=== PATIENT | female | born 1990 | race Caucasian/White ===

== ENCOUNTER 2024-10-22 17:05 | Emergency (ER) | payer MEDICAID, SELFPAY ==
[2024-10-22 17:14] VITALS: PULSE 84; RESP 16; TEMP 36.7; O2SAT 97
[2024-10-22 17:16] VITALS: BP 135/73; PULSE 83; RESP 16; TEMP 36.7; O2SAT 98
[2024-10-22 19:29] LABS: Basophils % 0.2 %; Eosinophils # 0.1 10^3/uL (0.0-0.8); Eosinophils % 0.8 %; Hematocrit 42.4 % (36-47); Lymphocytes # 2.5 10^3/uL (0.8-4.8); Lymphocytes % 27.1 %; Mean Corpuscular HGB Conc 33.3 g/dL (30-55); Mean Corpuscular Hemoglobin 31.8 pg (27-33); Mean Corpuscular Volume 95.5 fl (85-98); Mean Platelet Volume 9.6 fL (7.4-10.4); Monocytes # 0.6 10^3/uL (0.2-0.9); Monocytes % 6.6 %; Neutrophils # 6.01 10^3/uL (1.8-7.7); Neutrophils % 65.1 %; Nucleated Red Blood Cells % 0 %; Platelet Count 320 10^3/cmm (157-399); Red Blood Count 4.44 10^6/uL (3.85-5.65); Red Cell Distribution Width 11.9 % (12.1-15.1); White Blood Count 9.23 10^3/uL (3.29-11.43)
--- NOTE | 2024-10-22 19:37 | CTR_ITS ---
PROCEDURE INFORMATION: Exam: CT Abdomen And Pelvis With Contrast Exam date and time: 10/22/2024 8:16 PM Age: 34 years old Clinical indication: Abdominal pain; Generalized; Prior surgery; Surgery date: 6+ months; Surgery type: Tubes tied, low back; Additional info: Rlq abdominal pain TECHNIQUE: Imaging protocol: Computed tomography of the abdomen and pelvis with contrast. Radiation optimization: All CT scans at this facility use at least one of these dose optimization techniques: automated exposure control; mA and/or kV adjustment per patient size (includes targeted exams where dose is matched to clinical indication); or iterative reconstruction. Contrast material: OMNIPAQUE 350; Contrast volume: 100 ml; Contrast route: INTRAVENOUS (IV); COMPARISON: No relevant prior studies available. RADIATION DOSE METRICS: Total DLP (mGy-cm): 859.73 FINDINGS: Tubes, catheters and devices: Partially included CASHIER AND WAITER/WAITRESS shunt with no catheter interruption. Liver: Normal. No mass. Gallbladder and biliary ducts: Normal. No calcified stones. No ductal dilation. Pancreas: Normal. No ductal dilation. Spleen: Normal. No splenomegaly. Adrenal glands: Normal. No mass. Kidneys and ureters: Hypodense lesion in the interpolar region of the left kidney measuring 7 mm, too small to characterize. There is no evidence of hydronephrosis. Stomach and bowel: Unremarkable. No obstruction. No mucosal thickening. Appendix: No evidence of appendicitis. Intraperitoneal space: There is a small amount of free intraperitoneal fluid present. Vasculature: There are numerous benign phleboliths in the pelvis. Lymph nodes: Unremarkable. No enlarged lymph nodes. Urinary bladder: Unremarkable as visualized. Reproductive: Unremarkable as visualized. Bones/joints: There are mild degenerative changes of the hip joints. Post posterior L5-S1 instrumentation with L5-S1 interbody disc spacer. No hardware complications. Mild retrolisthesis of L4 over L5. Soft tissues: Unremarkable. CT/CT abdomen pelvis w con* [id number] IMPRESSION: No acute intra-abdominal process. COMMENTS: Consistent with the [employer]'s Incidental Findings Committee white paper (J Am Irena Radiol 2018): Any incidental renal lesion less than 1 cm or classified as too small to characterize, or any incidental cystic renal lesion characterized as simple-appearing, is likely benign. No follow-up imaging is recommended for these lesions per consensus recommendations based on imaging criteria.
[2024-10-22 19:46] LABS: Alanine Aminotransferase 16 U/L (0-33); Albumin Level 4.4 g/dL (3.5-5.2); Alkaline Phosphatase 65 U/L (35-105); Aspartate Amino Transferase 17 U/L (0-32); Blood Urea Nitrogen 8 mg/dL (6-20); C Reactive Protein 5.2 mg/L (0.0-4.9); Calcium 9.1 mg/dL (8.5-10.5); Carbon Dioxide 25 mmol/L (22-29); Chloride 99 mmol/L (98-107); Creatinine Clr Calc Pharmacy 132.8903; Globulin 3.1 g/dL (1.3-4.6); Glomerular Filtration Rate 95.8 mL/min (90-130); Glucose 95 mg/dL (65-115); Lipase 30 U/L (13-60); Osmolality Calculated 282 mOsm/kg (285-295); Sodium 137 mmol/L (136-145); Total Bilirubin 0.4 mg/dL (0.15-1.2); Total Protein 7.5 g/dL (6.6-8.7)
[2024-10-22 19:47] LABS: Lactic Sepsis W/Reflex 1.1 mmol/L (0.5-2.2)
[2024-10-22 19:50] LABS: Anion Gap 17.1 (5-19); Potassium 4.1 mmol/L (3.5-5.1)
[2024-10-22] MEDS: iohexol 350 mg/mL 500 mL Btl (per mL) IV (20:17)
--- NOTE | 2024-10-22 20:20 | ED_ITS ---
Documented by User: Noelle Cordero MD 10/22/24 20:22 HPI - Abdominal Pain 2 General: Chief Complaint: Abdominal Pain Stated Complaint: right lower abdominal pain Time Seen by Provider: 10/22/24 19:35 History of Present Illness: 34-year-old female who presents emergenc y room with right lower quadrant abdominal pain. She is been having pain for couple of weeks now. She had nausea and decreased appetite with weight loss she says. She went to see her primary who told her to come to the emergency room for imaging. No surgical history other than she did have her tubes tied. No fevers. Vital signs are normal on presentation. She has some tenderness to palpation in the right lower quadrant. Related Data Home Medications ?Medication ?Instructions ?Recorded ?Confirmed acetaminophen 325 mg tablet 325 mg PO QID PRN 10/22/24 10/22/24 (Tylenol) lamotrigine 200 mg tablet 200 mg PO BID 10/22/2410/22 omeprazole 20 mg capsule,delayed 20 mg PO DAILY 10/22/24 release spironolactone 50 mg tablet 75 mg PO DAILY 10/22/24 Allergies Allergy/AdvReac Type Severity Reaction Status Date / Time tetracycline Allergy Severe Unknown Verified 10/22/24 15:07 azithromycin Allergy Intermediate Unknown Verified 10/22/24 15:07 latex Allergy Intermediate ALGY-Bliste Verified 10/22/24 15:07 r tramadol Allergy Intermediate Unknown Verified 10/22/24 15:07 vancomycin Allergy Intermediate ADR/ALGY-Fl Verified 10/22/24 15:07 ushing Review of Systems 2 Narrative: Constitutional symptoms: Negative except as documented in HPI. Skin symptoms: Negative except as documented in HPI. Eye symptoms: Negative except as documented in HPI. ENMT symptoms: Negative except as documented in HPI. Respiratory symptoms: Negative except as documented in HPI. Cardiovascular symptoms: Negative except as documented in HPI. Gastrointestinal symptoms: Negative except as documented in HPI. Genitourinary symptoms: Negative except as documented in HPI. Musculoskeletal symptoms: Negative except as documented in HPI. Neurologic symptoms: Negative except as documented in HPI. Psychiatric symptoms: Negative except as documented in HPI. Endocrine symptoms: Negative except as documented in HPI. PFSH ED 2 PFSH: Social History Smoking and tobacco/nicotine status: former use of tobacco/nicotine Physical Exam 2 Narrative: EXAM NARRATIVE: General: Alert, no acute distress. Skin: Warm, dry. Head: Normocephalic, atraumatic. Neck: Supple, trachea midline. Eye: Extraocular movements are intact. Ears, nose, mouth and throat: mucosa moist. Cardiovascular: Regular, Normal peripheral perfusion. Respiratory: Lungs are clear to auscultation, respirations are non-labored, breath sounds are equal, Symmetrical chest wall expansion. Gastrointestinal: Soft, tenderness to palpation in the right lower quadrant, Non distended Musculoskeletal: Normal ROM, no deformity. Neurological: Alert and oriented, No focal neurological deficit observed. Psychiatric: Cooperative, appropriate mood & affect. Course 2 Vital Signs: Vital signs: Vital Signs Temperature 98.0 F 10/22/24 17:16 Pulse Rate 71 10/22/24 21:28 Respiratory Rate 18 10/22/24 21:28 Blood Pressure 117/60 10/22/24 21:28 Pulse Oximetry 98 10/22/24 21:28 Oxygen Delivery Me thod Room Air 10/22/24 21:28 MDM - Abdominal Pain Medical Decision Making Medical decision making: Differential diagnosis for this patient with right lower quadrant abdominal pain including but not limited to and based on the above HPI, review of systems and physical exam: Ureterolithiasis. Urinary tract infection. Appendicitis. colitis. small bowel obstruction. Crohn's flare. Pancreatitis. Cholelithiasis or cholecystitis. Hepatitis. Diverticulitis. Constipation. ovarian cyst. ovarian torsion Workup: Orders were placed to evaluate differential diagnosis based on the above differential, HPI and exam: Lab Review: Laboratory results were reviewed and interpreted by myself the emergency room physician. I reviewed the patient's medical record Reexamination: Lab Data 10/22/24 19:20 10/22/24 19:20 Labs/Radiology: Radiology Impressions Abdomen/Pelvis CT 10/22/24 19:37 IMPRESSION: No acute intra-abdominal process. COMMENTS: Consistent with the [employer]'s Incidental Findings Committee white paper (J Am Irena Radiol 2018): Any incidental renal lesion less than 1 cm or classified as too small to characterize, or any incidental cystic renal lesion characterized as simple-appearing, is likely benign. No follow-up imaging is recommended for these lesions per consensus recommendations based on imaging criteria. Laboratory Results WBC 9.23 10^3/uL (3.29-11.43) 10/22/24 19:20 RBC 4.44 10^6/uL (3.85-5.65) 10/22/24 19:20 Hgb 14.10 g/dL (11.27-16.99) 10/22/24 19:20 Hct 42.4 % (36-47) 10/22/24 19:20 MCV 95.5 fl (85-98) 10/22/24 19:20 MCH 31.8 pg (27-33) 10/22/24 19:20 MCHC 33.3 g/dL (30-55) 10/22/24 19:20 RDW 11.9 % (12.1-15.1) L 10/22/24 19:20 Plt Count 320 10^3/cmm (157-399) 10/22/24 19:20 MPV 9.6 fL (7.4-10.4) 10/22/24 19:20 Neut % (Auto) 65.1 % 10/22/24 19:20 Lymph % (Auto) 27.1 % 10/22/24 19:20 [place] % (Auto) 6.6 % 10/22/24 19:20 Eos % (Auto) 0.8 % 10/22/24 19:20 Baso % (Auto) 0.2 % 10/22/24 19:20 Neut # (Auto) 6.01 10^3/uL (1.8-7.7) 10/22/24 19:20 Lymph # (Auto) 2.5 10^3/uL (0.8-4.8) 10/22/24 19:20 [place] # (Auto) 0.6 10^3/uL (0.2-0.9) 10/22/24 19:20 Eos # (Auto) 0.1 10^3/uL (0.0-0.8) 10/22/24 19:20 Baso # (Auto) 0.0 10^3/uL (0.0-0.1) 10/22/24 19:20 Nucleated RBC % (auto) 0 % 10/22/24 19:20 Nucleated RBCs # 0.0 /100WBC 10/22/24 19:20 Sodium 137 mmol/L (136-145) 10/22/24 19:20 Potassium 4.1 mmol/L (3.5-5.1) 10/22/24 19:20 Chloride 99 mmol/L (98-107) 10/22/24 19:20 Carbon Dioxide 25 mmol/L (22-29) 10/22/24 19:20 Anion Gap 17.1 (5-19) 10/22/24 19:20 BUN 8 mg/dL (6-20) 10/22/24 19:20 Creatinine 0.7 mg/dL (0.5-0.9) 10/22/24 19:20 GFR Calculation 95.8 mL/min (90-130) 10/22/24 19:20 Glucose 95 mg/dL (65-115) 10/22/24 19:20 Calculated Osmolality 282 mOsm/kg (285-295) L 10/22/24 19:20 Lactic Acid 1.1 mmol/L (0.5-2.2) 10/22/24 19:20 Calcium 9.1 mg/dL (8.5-10.5) 10/22/24 19:20 Total Bilirubin 0.4 mg/dL (0.15-1.2) 10/22/24 19:20 AST 17 U/L (0-32) 10/22/24 19:20 ALT 16 U/L (0-33) 10/22/24 19:20 Alkaline Phosphatase 65 U/L (35-105) 10/22/24 19:20 C-Reactive Protein 5.2 mg/L (0.0-4.9) H 10/22/24 19:20 Total Protein 7.5 g/dL (6.6-8.7) 10/22/24 19:20 Albumin 4.4 g/dL (3.5-5.2) 10/22/24 19:20 Globulin 3.1 g/dL (1.3-4.6) 10/22/24 19:20 Lipase 30 U/L (13-60) 10/22/24 19:20 HCG, Qual Negative (Negative) 10/22/24 19:20 Discharge Plan Discharge Patient Disposition: Home Clinical Impression: Gastroenteritis Condition: Stable Prescriptions: No Action acetaminophen [Tylenol] 325 mg tablet 325 mg PO QID PRN lamotrigine 200 mg tablet 200 mg PO BID omeprazole 20 mg capsule,delayed release(DR/EC) 20 mg PO DAILY spironolactone 50 mg tablet 75 mg PO DAILY Discharge Orders: Discharge ED (Routine); Ordered 10/22/24 Ordered By: Diomedes Armendariz Discharge Diet: Advance as tolerated Discharge Activity: Increase activity as tolerated Patient Instructions: Opioid Safety, Pain Management Activity Restrictions/Additional Instructions: Please follow-up with your primary care physician for any persistent symptoms. Return to the emergency department for any new or worsening symptoms. Print Language: Persian Coding Level of Care Code ED Residential Recycle Driver for [employer] Fwd Documented by User: Diomedes Armendariz DO 10/22/24 21:33 HPI - Abdominal Pain 2 General: Chief Complaint: Abdominal Pain Stated Complaint: right lower abdominal pain Time Seen by Provider: 10/22/24 19:35 Related Data Home Medications ?Medication ?Instructions ?Recorded ?Confirmed acetaminophen 325 mg tablet 325 mg PO QID PRN 10/22/24 10/22/24 (Tylenol) lamotrigine 200 mg tablet 200 mg PO BID 10/22/2410/22 omeprazole 20 mg capsule,delayed 20 mg PO DAILY 10/22/24 release spironolactone 50 mg tablet 75 mg PO DAILY 10/22/24 Allergies Allergy/AdvReac Type Severity Reaction Status Date / Time tetracycline Allergy Severe Unknown Verified 10/22/24 15:07 azithromycin Allergy Intermediate Unknown Verified 10/22/24 15:07 latex Allergy Intermediate ALGY-Bliste Verified 10/22/24 15:07 r tramadol Allergy Intermediate Unknown Verified 10/22/24 15:07 vancomycin Allergy Intermediate ADR/ALGY-Fl Verified 10/22/24 15:07 ushing [facility] ED 2 PFSH: Social History Smoking and tobacco/nicotine status: former use of tobacco/nicotine Course 2 Vital Signs: Vital signs: Vital Signs Temperature 98.0 F 10/22/24 17:16 Pulse Rate 71 10/22/24 21:28 Respiratory Rate 18 10/22/24 21:28 Blood Pressure 117/60 10/22/24 21:28 Pulse Oximetry 98 10/22/24 21:28 Oxygen Delivery Me thod Room Air 10/22/24 21:28 MDM - Abdominal Pain Medical Decision Making Medical decision making: Differential diagnosis for this patient with right lower quadrant abdominal pain including but not limited to and based on the above HPI, review of systems and physical exam: Ureterolithiasis. Urinary tract infection. Appendicitis. colitis. small bowel obstruction. Crohn's flare. Pancreatitis. Cholelithiasis or cholecystitis. Hepatitis. Diverticulitis. Constipation. ovarian cyst. ovarian torsion Workup: Orders were placed to evaluate differential diagnosis based on the above differential, HPI and exam: Lab Review: Laboratory results were reviewed and interpreted by myself the emergency room physician. I reviewed the patient's medical record 2131: Care assumed from Dr. Cordero. Patient awaiting CT results. On review of the CT results there is no acute intra-abdominal process. Vital signs were stable. Patient was feeling improved with IV fluids. Encouraged her to follow-up with her primary care physician. Return precautions were discussed and the patient was discharged home in good condition. Lab Data 10/22/24 19:20 10/22/24 19:20 Labs/Radiology: Radiology Impressions Abdomen/Pelvis CT 10/22/24 19:37 IMPRESSION: No acute intra-abdominal process. COMMENTS: Consistent with the [employer]'s Incidental Findings Committee white paper (J Am Irena Radiol 2018): Any incidental renal lesion less than 1 cm or classified as too small to characterize, or any incidental cystic renal lesion characterized as simple-appearing, is likely benign. No follow-up imaging is recommended for these lesions per consensus recommendations based on imaging criteria. Laboratory Results WBC 9.23 10^3/uL (3.29-11.43) 10/22/24 19:20 RBC 4.44 10^6/uL (3.85-5.65) 10/22/24 19:20 Hgb 14.10 g/dL (11.27-16.99) 10/22/24 19:20 Hct 42.4 % (36-47) 10/22/24 19:20 MCV 95.5 fl (85-98) 10/22/24 19:20 MCH 31.8 pg (27-33) 10/22/24 19:20 MCHC 33.3 g/dL (30-55) 10/22/24 19:20 RDW 11.9 % (12.1-15.1) L 10/22/24 19:20 Plt Count 320 10^3/cmm (157-399) 10/22/24 19:20 MPV 9.6 fL (7.4-10.4) 10/22/24 19:20 Neut % (Auto) 65.1 % 10/22/24 19:20 Lymph % (Auto) 27.1 % 10/22/24 19:20 [place] % (Auto) 6.6 % 10/22/24 19:20 Eos % (Auto) 0.8 % 10/22/24 19:20 Baso % (Auto) 0.2 % 10/22/24 19:20 Neut # (Auto) 6.01 10^3/uL (1.8-7.7) 10/22/24 19:20 Lymph # (Auto) 2.5 10^3/uL (0.8-4.8) 10/22/24 19:20 [place] # (Auto) 0.6 10^3/uL (0.2-0.9) 10/22/24 19:20 Eos # (Auto) 0.1 10^3/uL (0.0-0.8) 10/22/24 19:20 Baso # (Auto) 0.0 10^3/uL (0.0-0.1) 10/22/24 19:20 Nucleated RBC % (auto) 0 % 10/22/24 19:20 Nucleated RBCs # 0.0 /100WBC 10/22/24 19:20 Sodium 137 mmol/L (136-145) 10/22/24 19:20 Potassium 4.1 mmol/L (3.5-5.1) 10/22/24 19:20 Chloride 99 mmol/L (98-107) 10/22/24 19:20 Carbon Dioxide 25 mmol/L (22-29) 10/22/24 19:20 Anion Gap 17.1 (5-19) 10/22/24 19:20 BUN 8 mg/dL (6-20) 10/22/24 19:20 Creatinine 0.7 mg/dL (0.5-0.9) 10/22/24 19:20 GFR Calculation 95.8 mL/min (90-130) 10/22/24 19:20 Glucose 95 mg/dL (65-115) 10/22/24 19:20 Calculated Osmolality 282 mOsm/kg (285-295) L 10/22/24 19:20 Lactic Acid 1.1 mmol/L (0.5-2.2) 10/22/24 19:20 Calcium 9.1 mg/dL (8.5-10.5) 10/22/24 19:20 Total Bilirubin 0.4 mg/dL (0.15-1.2) 10/22/24 19:20 AST 17 U/L (0-32) 10/22/24 19:20 ALT 16 U/L (0-33) 10/22/24 19:20 Alkaline Phosphatase 65 U/L (35-105) 10/22/24 19:20 C-Reactive Protein 5.2 mg/L (0.0-4.9) H 10/22/24 19:20 Total Protein 7.5 g/dL (6.6-8.7) 10/22/24 19:20 Albumin 4.4 g/dL (3.5-5.2) 10/22/24 19:20 Globulin 3.1 g/dL (1.3-4.6) 10/22/24 19:20 Lipase 30 U/L (13-60) 10/22/24 19:20 HCG, Qual Negative (Negative) 10/22/24 19:20 All radiology interpretation(s) finalized by discharge Discharge Plan Discharge Patient Disposition: Home Clinical Impression: Gastroenteritis Condition: Stable Prescriptions: No Action acetaminophen [Tylenol] 325 mg tablet 325 mg PO QID PRN lamotrigine 200 mg tablet 200 mg PO BID omeprazole 20 mg capsule,delayed release(DR/EC) 20 mg PO DAILY spironolactone 50 mg tablet 75 mg PO DAILY Discharge Orders: Discharge ED (Routine); Ordered 10/22/24 Ordered By: Diomedes Law Discharge Diet: Advance as tolerated Discharge Activity: Increase activity as tolerated Patient Instructions: Opioid Safety, Pain Management Activity Restrictions/Additional Instructions: Please follow-up with your primary care physician for any persistent symptoms. Return to the emergency department for any new or worsening symptoms. Print Language: Persian Coding Level of Care Code ED Residential Recycle Driver for Simran Bernal
[2024-10-22 20:21] LABS: HCG, Serum Qual Negative (Negative)
[2024-10-22] MEDS: sodium chloride 0.9% 1,000 ML 999 ML IV (20:45)
[2024-10-22 21:28] VITALS: BP 117/60; PULSE 71; RESP 18; O2SAT 98
[2024-10-22 21:42] VITALS: BP 117/60; PULSE 71; RESP 16; O2SAT 98
== END 2024-10-22 21:43 | disposition home or self-care (01) ==
PROVIDERS: Emergency Medicine; Emergency Provider General Practice
DX: K52.9 Noninfective gastroenteritis and colitis, unspecified (principal)
CPT/HCPCS: 36415; 74177; 80053; 83605; 83690; 84703; 85025; 86140; 96360; 99285; J7030

== ENCOUNTER 2025-03-11 15:02 | Emergency (ER) | payer MEDICAID, SELFPAY ==
[2025-03-11 15:07] VITALS: BMI 31.3
--- NOTE | 2025-03-11 15:31 | CTR_ITS ---
PROCEDURE INFORMATION: Exam: CT Head Without Contrast Exam date and time: 03/11/2025 3:55 PM Age: 35 years old Clinical indication: Pain; PT states that 5 days ago she was washing her hair and when she flipped her hair back she felt something pop. PT states that it was sore at first but its getting worse. PT states that she is having right arm numbness and a headache; Additional info: Headache with shunt TECHNIQUE: Imaging protocol: Computed tomography of the head without contrast. Axial, coronal and sagittal reformatted images were created and reviewed. Radiation optimization: All CT scans at this facility use at least one of these dose optimization techniques: automated exposure control; mA and/or kV adjustment per patient size (includes targeted exams where dose is matched to clinical indication); or iterative reconstruction. COMPARISON: CT cervical spin wo con* [id number] 03/11/2025 3:55 PM RADIATION DOSE METRICS: Total DLP (mGy-cm): 1167.25 FINDINGS: Tubes, catheters and devices: Right transparietal ventriculostomy catheter in place. Brain: No CT evidence of acute intracranial hemorrhage or acute territorial infarction. No significant mass effect or midline shift. Basal cisterns patent. Cerebral ventricles: Normal in size and configuration. Paranasal sinuses: Unremarkable. No fluid levels. Mastoid air cells: Evidence of prior partial bilateral mastoidectomies. Bones: Unremarkable. No acute fracture. Soft tissues: Grossly unremarkable. CT/CT head wo con* [id number] IMPRESSION: 1. No CT evidence of acute intracranial pathology. 2. Additional findings, as above.
--- NOTE | 2025-03-11 15:36 | CTR_ITS ---
PROCEDURE INFORMATION: Exam: CT Cervical Spine Without Contrast Exam date and time: 03/11/2025 3:55 PM Age: 35 years old Clinical indication: Other: Injury with sensation changes left arm/hand; PT states that 5 days ago she was washing her hair and when she flipped her hair back she felt something pop. PT states that it was sore at first but its getting worse. PT states that she is having right arm numbness and a headache TECHNIQUE: Imaging protocol: Computed tomography of the cervical spine without contrast. Axial, coronal and sagittal reformatted images were created and reviewed. Radiation optimization: All CT scans at this facility use at least one of these dose optimization techniques: automated exposure control; mA and/or kV adjustment per patient size (includes targeted exams where dose is matched to clinical indication); or iterative reconstruction. COMPARISON: CT head wo con* [id number] 03/11/2025 3:55 PM RADIATION DOSE METRICS: Total DLP (mGy-cm): 263.1 FINDINGS: Bones: Straightening of the normal cervical lordosis. No CT evidence of acute fracture, dislocation or subluxation. Alignment anatomic. Vertebral body heights maintained. Intervertebral disc spaces preserved. No significant spinal canal or neural foraminal stenosis. Lungs: Lung apices are normal. Soft tissues: Grossly unremarkable. CT/CT cervical spin wo con* [id number] IMPRESSION: 1. No CT evidence of acute cervical spine traumatic injury. 2. Additional findings, as above.
--- NOTE | 2025-03-11 15:38 | W.ED.NECK ---
HPI - Neck Pain/Injury General: Chief Complaint: Neck Pain/Injury Stated Complaint: neck injury Time Seen by Provider: 03/11/25 15:26 History of Present Illness: Patient is a 35-year-old female with history of shunt 7 years ago, epilepsy on lamotrigine, that presented to the emergency room with neck and sensation changes to right arm. Patient started having symptoms when flipped her head back fixing her hair. She heard a pop when she flipped her hair back. This was 5 days ago. She states that she has pain right around the right side of her cervical neck where she has a shunt. Yesterday, as when she noted her right arm started having sensation changes, numbness, tingling. This has continued. Her headache has been pretty consistent for the last 5 days since flipping her head back. She has not had primary care physician since she has been in the area the last 2 years. She obtains her lamotrigine from previous physician. She is compliant to lamotrigine. Associated symptoms: Denies headache(s) or nausea Related Data Home Medications ?Medication ?Instructions ?Recorded ?Confirmed acetaminophen 325 mg tablet 650 mg PO QID PRN Fever Or Pain 10/22/24 03/11/25 (Tylenol) lamotrigine 200 mg tablet 200 mg PO BID 10/22/24 03/11/25 omeprazole 20 mg capsule,delayed 20 mg PO DAILY 10/22/24 03/11/25 release multivitamin 1 tab PO DAILY 03/10/25 03/11/25 ibuprofen 200 mg tablet (Advil) 800 mg PO Q6H PRN Pain 03/11/25 03/11/25 spironolactone 25 mg tablet See Rx Instructions .Route .COMPLEX 03/11/25 03/11/25 Previous Rx's ?Medication ?Instructions ?Recorded tizanidine 2 mg tablet 2 mg PO BID PRN muscle spasticity 03/10/25 #6 tabs ketorolac 10 mg tablet 10 mg PO Q8H PRN pain 5 days #14 03/11/25 tabs methocarbamol 750 mg tablet 750 mg PO Q8H PRN muscle spasm #30 03/11/25 tabs Allergies Allergy/AdvReac Type Severity Reaction Status Date / Time tetracycline Allergy Severe Unknown Verified 03/11/25 15:12 azithromycin Allergy Intermediate Unknown Verified 03/11/25 15:12 latex Allergy Intermediate ALGY-Bliste Verified 03/11/25 15:12 r tramadol Allergy Intermediate Unknown Verified 03/11/25 15:12 vancomycin Allergy Intermediate ADR/ALGY-Fl Verified 03/11/25 15:12 ushing Review of Systems General: Reports: 10 or more systems reviewed and unremarkable except in HPI and below Const: Denies: fever(s) or chills Eyes: Denies: change in vision or blurry vision ENMT: Denies: throat pain or uvular edema Resp: Denies: dyspnea or non-productive cough GI: Denies: abdominal pain, nausea or vomiting : Denies: flank pain or difficulty voiding Musc: Reports: neck pain; Denies: back pain or joint pain Skin/Breast: Denies: rash or pruritus Neuro: Denies: headache(s) or numbness in extremities Psych: Denies: anxiety or depression Endo: Denies: polyuria or polydipsia Murtaza/Lymph: Denies: easy bruising or easy bleeding PFSH ED PFSH: Social History Smoking and tobacco/nicotine status: former use of tobacco/nicotine Physical Exam Const: COMMON NORMALS: no acute distress, average body habitus and patient oriented x3 GENERAL APPEARANCE: cooperative and comfortable; not in distress and not anxious HENMT: THROAT: no uvular edema Eye: COMMON NORMALS: Equal, round and reactive pupils present, EOMs intact bilaterally and conjunctivae normal CONJUNCTIVA: Yes conjunctivae normal PUPIL: Yes Equal, round and reactive pupils present Neck/C-Spine: COMMON NORMALS: full ROM and no lymphadenopathy CERVICAL SPINE: Yes cervical ROM normal and Yes Paracervical spasm right Lymph: LYMPHATIC: no lymphadenopathy noted Chest: COMMONS NORMALS: normal inspection of the chest and normal palpation of entire chest wall Resp: COMMON NORMALS: normal respiratory effort, No retractions and clear to auscultation bilaterally AUSCULTATION: clear to auscultation bilaterally Cardio: COMMON NORMALS: regular rate and regular rhythm RATE: regular rate RHYTHM: regular rhythm GI: COMMON NORMALS: Normal to inspection, nondistended, normoactive bowel sounds present, Soft to palpation, non-tender and No hepatosplenomegaly present PALPATION: Yes Soft to palpation and Yes No hepatosplenomegaly present : COMMON NORMALS: Yes no CVA tenderness BLADDER/KIDNEY EXAM: Yes no CVA tenderness Back/Pelvis: COMMON NORMALS: no CVA tenderness, thoracic and lumbar spine normal to inspection and no thoracic nor lumbar tenderness LUMBAR SPINE/LOWER BACK: Yes normal to inspection, Yes lumbar ROM normal, Yes ROM limited and No pain with ROM Extremity: COMMON NORMALS: normal to inspection, full ROM and capillary refill normal Neuro: COMMON NORMALS: patient oriented x3 Psych: COMMON NORMALS: mental status grossly normal, Normal thought process present, cooperative, normal affect, speech normal and activity/motor behavior normal SPEECH: Yes normal speech THOUGHT PROCESS: Normal thought process present Skin: COMMON NORMALS: no rashes or lesions noted, no wounds and turgor normal GENERAL SKIN EXAM: no rashes or lesions noted and turgor normal Course Vital Signs: Vital signs: Vital Signs Pulse Rate 76 03/11/25 17:32 Blood Pressure 125/77 03/11/25 17:32 Pulse Oximetry 95 03/11/25 17:32 MDM - Neck Pain/Injury Medical Decision Making Patient is a pleasant 20-year-old female with headache, cervical neck strain after straining her neck. She is improved after Toradol, Norflex. CT is unremarkable. Medical Records I reviewed the patient's medical records. Lab Data Radiology Impressions Head CT 03/11/25 15:31 IMPRESSION: 1. No CT evidence of acute intracranial pathology. 2. Additional findings, as above. Cervical Spine CT 03/11/25 15:[address]: [address] evidence of acute cervical spine traumatic injury. 2. Additional findings, as above. All radiology interpretation(s) finalized by discharge Discharge Plan Discharge Patient Disposition: Home Clinical Impression: Sprain of cervical neck Qualifiers: Encounter type: initial encounter Qualified Code(s): S13.9XXA - Sprain of joints and ligaments of unspecified parts of neck, initial encounter Headache Qualifiers: Headache type: tension-type Headache chronicity pattern: acute headache Intractability: not intractable Qualified Code(s): G44.209 - Tension-type headache, unspecified, not intractable Condition: Stable Prescriptions: New ketorolac 10 mg tablet 10 mg PO Q8H PRN (Reason: pain) 5 Days Qty: 14 0RF methocarbamol 750 mg tablet 750 mg PO Q8H PRN (Reason: muscle spasm) Qty: 30 0RF No Action acetaminophen [Tylenol] 325 mg tablet 650 mg PO QID PRN (Reason: Fever Or Pain) lamotrigine 200 mg tablet 200 mg PO BID omeprazole 20 mg capsule,delayed release(DR/EC) 20 mg PO DAILY multivitamin Tablet 1 tab PO DAILY tizanidine 2 mg tablet 2 mg PO BID PRN (Reason: muscle spasticity) Qty: 6 0RF spironolactone 25 mg tablet See Rx Instructions .ROUTE .COMPLEX Rx Instructions: TAKE THREE TABLETS BY MOUTH IN THE MORNING AND TWO TABLETS AT NIGHT ibuprofen [Advil] 200 mg Tablet 800 mg PO Q6H PRN (Reason: Pain) Discharge Orders: Discharge ED (Routine); Ordered 03/11/25 Ordered By: Kayleen Matos Discharge Diet: Usual diet Discharge Activity: Resume usual activity and Increase activity as tolerated Patient Instructions: Cervical Strain (ED), Patient Portal & Raf Instructions Activity Restrictions/Additional Instructions: - No disc abnormalities were found on your CAT scan of your neck today. No abnormalities in your head were found on your head today - Do not take any ibuprofen while you are on the ketorolac/Toradol. As we discussed as well, methocarbamol can cause increasing sedation, you might cut in half prior to taking her first 1 for headache. You can add Tylenol with these medications for additional analgesic relief -Case management has been made an order for primary care follow-up. They will call you with assisting with appointment follow-up. Stand Alone Forms: Work/School Release Print Language: Portuguese Coding Level of Care Code ED Blasting Helper for Simran Bernal
[2025-03-11] MEDS: orphenadrine 30 mg/mL Inj 2 mL 60 MG IM (16:28)
[2025-03-11 17:32] VITALS: BP 125/77; PULSE 76; O2SAT 95
--- NOTE | 2025-03-12 08:26 | DCPLANNER ---
messaged lizzie mott to establish PCP
== END 2025-03-11 17:34 | disposition home or self-care (01) ==
PROVIDERS: Emergency Provider Physician Assistant
DX: S13.9XXA Sprain of joints and ligaments of unspecified parts of neck, initial encounter (principal); G44.209 Tension-type headache, unspecified, not intractable; Z87.891 Personal history of nicotine dependence; X58.XXXA Exposure to other specified factors, initial encounter
CPT/HCPCS: 70450; 72125; 96372; 99284; J1100; J2360